=== PATIENT | male | born 1985 | race Caucasian/White ===

== ENCOUNTER 2020-05-27 20:16 | Inpatient (IN) | payer MEDICAID ==
[~2020-05-27] VITALS: Ht 182.9 cm; Wt 69.1 kg
[2020-05-27] MEDS ORDERED: IBUPROFEN 600 MG TABLET ONE (21:01)
[2020-05-27] MEDS ORDERED: HYDROcodone/APAP 5/325 TABLET ONE (21:02)
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
[2020-05-27] MEDS ORDERED: HYDROcodone/APAP 5/325 TABLET PO ONE (21:30)
[2020-05-27] MEDS ORDERED: IBUPROFEN 600 MG TABLET PO ONE (21:30)
--- NOTE | 2020-05-27 22:02 | NUR ---
REPORT FROM TIMOTHY LAMBERT. PT RESTING WITH NO NEEDS AT THIS TIME,CALL LIGHT IN REACH
[2020-05-27] MEDS ORDERED: SODIUM CHLORIDE FLUSH 10ML SYR IVF ONE (23:00)
[2020-05-27] MEDS ORDERED: AMPICILLIN/SULBACTAM 3 GM in SODIUM CHLORIDE 0.9% 100 ML IV ONE (23:00)
[2020-05-27] MEDS ORDERED: HYDROmorphone 2 MG/ML, 1ML IVPush PRN (23:00)
[2020-05-27] MEDS ORDERED: SODIUM CHLORIDE 0.9% 1,000ML IVBOLUS ONE (23:00)
[2020-05-27] MEDS ORDERED: ONDANSETRON 2MG/ML, 2ML IVPush ONE (23:00)
[2020-05-27] MEDS ORDERED: ONDANSETRON 2MG/ML, 2ML ONE (23:14)
[2020-05-27] MEDS ORDERED: HYDROmorphone 1 MG/ML, 1ML INJ ONE (23:14)
[2020-05-27 23:22] LABS: BASOPHILS # (AUTO) 0.05 x10^3/uL (0-0.1); BASOPHILS % (AUTO) 1 % (0-1); EOSINOPHILS % (AUTO) 1 % (1-7); LYMPHOCYTES # (AUTO) 1.62 x10^3/uL (1-3.4); LYMPHOCYTES % (AUTO) 20 % (22-44); MD NO; MEAN CORPUSCULAR HEMOGLOBIN 29.2 pg (27.5-34.5); MEAN CORPUSCULAR HGB CONC 33.2 g/dL (33.2-36.2); MEAN CORPUSCULAR VOLUME 87.9 fL (81-97); MEAN PLATELET VOLUME 7.4 fL (7.4-10.4); MONOCYTES # (AUTO) 0.67 x10^3/uL (0.2-0.8); MONOCYTES % (AUTO) 8 % (2-9); NEUTROPHILS # (AUTO) 5.65 x10^3/uL (1.8-6.8); NEUTROPHILS % (AUTO) 70 % (42-75); PLATELET COUNT 294 x10^3/uL (130-400); RED BLOOD COUNT 3.86 x10^6/uL (4.38-5.82); RED CELL DISTRIBUTION WIDTH 13.3 % (9.4-14.8)
[2020-05-27 23:32] LABS: ANION GAP 5 mmol/L (5-15); CHLORIDE 108 mmol/L (98-107); CREATININE 0.61 mg/dL (0.7-1.3)
--- NOTE | 2020-05-27 23:42 | NUR ---
PIV PLACED. PT MEDICATED FOR PAIN AND ABX RUNNING. REPORT GIVEN TO NOAH.
[2020-05-28] MEDS ORDERED: TEMAZEPAM 15 MG CAPSULE PO PRN
[2020-05-28] MEDS ORDERED: hydrALAzine 20 MG/ML, 1ML IVPush PRN
[2020-05-28] MEDS ORDERED: DOCUSATE 100 MG CAPSULE PO PRN
[2020-05-28] MEDS ORDERED: LIDODERM 5% PATCH TD PRN
[2020-05-28] MEDS: LACTATED RINGERS 1,000 ML IV SCH ×3 (00:13→14:23)
[2020-05-28 00:35] VITALS: BP 94/56
[2020-05-28] MEDS: HYDROmorphone 2 MG/ML, 1ML IVPush PRN ×8 (03:16→09:25)
[2020-05-28] MEDS: ONDANSETRON 2MG/ML, 2ML IVPush PRN ×2 (05:46→15:19)
[2020-05-28] MEDS ORDERED: SODIUM CHLORIDE 0.9%, 500ML IVBOLUS ONE (06:00)
[2020-05-28] MEDS: AMPICILLIN/SULBACTAM 3 GM in SODIUM CHLORIDE 0.9% 100 ML IV SCH ×2 (07:58→14:22)
[2020-05-28 08:02] VITALS: BP 108/71
[2020-05-28] MEDS ORDERED: CHLORHEXIDINE 15 ML UDC ONE (08:56)
[2020-05-28] MEDS ORDERED: CHLORHEXIDINE 15 ML UDC MM ONE (09:00)
[2020-05-28] MEDS ORDERED: LIDOCAINE 1%-EPI 1:100K, 20ML ONE (09:09)
[2020-05-28] MEDS ORDERED: LORazepam 2 MG/ML, 1ML ONE (10:16)
[2020-05-28] MEDS ORDERED: LORazepam 2 MG/ML, 1ML IVPush STA (10:16)
[2020-05-28 10:30] LABS: AMPHETAMINE SCREEN, URINE Positive (Negative); BARBITURATE SCREEN, URINE Negative (Negative); BENZODIAZEPINE SCREEN, URINE Negative (Negative); CANNABINOID SCREEN, URINE Negative (Negative); COCAINE SCREEN, URINE Negative (Negative); OPIATE SCREEN, URINE Positive (Negative)
[2020-05-28 10:31] LABS: METHADONE SCREEN, URINE Negative (Negative)
[2020-05-28] MEDS ORDERED: ROCURONIUM 10 MG/ML,10ML ONE (11:03)
[2020-05-28] MEDS ORDERED: ONDANSETRON 2MG/ML, 2ML ONE (11:03)
[2020-05-28] MEDS ORDERED: DEXAMETHASONE 4 MG/ML, 1ML ONE (11:03)
[2020-05-28] MEDS ORDERED: SUCCINYLCHOLINE 20 MG/ML, 10ML ONE (11:03)
[2020-05-28] MEDS ORDERED: MIDAZOLAM 1 MG/ML, 2ML ONE (11:04)
[2020-05-28] MEDS ORDERED: FENTANYL PF 250 MCG/5ML ONE ×2 (11:04→11:18)
[2020-05-28] MEDS ORDERED: PROPOFOL 10 MG/ML, 20ML ONE (11:17)
[2020-05-28] MEDS ORDERED: LABETALOL 5MG/ML, 20ML IV PRN (11:30)
[2020-05-28] MEDS ORDERED: DIPHENHYDRAMINE 50 MG/ML, 1ML IVPush PRN (11:30)
[2020-05-28] MEDS ORDERED: MIDAZOLAM 1 MG/ML, 2ML IV PRN (11:30)
[2020-05-28] MEDS ORDERED: FENTANYL PF 100 MCG/2ML IV PRN (11:30)
[2020-05-28] MEDS ORDERED: PROMETHAZINE 25 MG/ML, 1ML IVPush PRN (11:30)
[2020-05-28] MEDS ORDERED: MEPERIDINE/PF 25MG/0.5ML IVPush PRN (11:30)
[2020-05-28] MEDS ORDERED: ALBUTEROL SULFATE 2.5 MG/3 ML NPPB PRN (11:30)
[2020-05-28] MEDS ORDERED: ONDANSETRON 2MG/ML, 2ML IVPush PRN (11:30)
[2020-05-28] MEDS ORDERED: hydrALAzine 20 MG/ML, 1ML IV PRN (11:30)
[2020-05-28] MEDS ORDERED: EPHEDRINE 50 MG/ML, 1ML IVPush PRN (11:30)
[2020-05-28] MEDS ORDERED: PROMETHAZINE 12.5 MG SUPP PR PRN (11:30)
[2020-05-28] MEDS ORDERED: DIAZEPAM 5 MG/ML, 2ML IVPush PRN (11:30)
[2020-05-28] MEDS ORDERED: HYDROmorphone 1 MG/ML, 1ML INJ IVPush PRN (11:30)
[2020-05-28] MEDS ORDERED: ACETAMINOPHEN 325 MG TABLET PO PRN (11:30)
[2020-05-28] MEDS ORDERED: OXYcodone 5 MG/5 ML ORAL.SOL UDC PO PRN (11:30)
[2020-05-28 13:08] VITALS: BP 114/75
[2020-05-28] MEDS ORDERED: IBUP-1222 PO (14:42)
== END 2020-05-28 16:15 | disposition home or self-care (01) | DRG 131 ==
LOC: ED 20:46 → 4NE 23:48 → ED 23:49 → 4NE 05-28 00:28
PROVIDERS: ADMIT Student in an Organized Health Care Education/Training Program; ATTEND Family Medicine
PROC: 0NS Head and Facial Bones, Reposition (ICD-10-PCS; principal; 2020-05-28 10:00)
DX: S02.40FA Zygomatic fracture, left side, initial encounter for closed fracture (principal); S02.32XA Fracture of orbital floor, left side, initial encounter for closed fracture; S02.40DA Maxillary fracture, left side, initial encounter for closed fracture; F11.129 Opioid abuse with intoxication, unspecified; G89.11 Acute pain due to trauma; Z59.0 Homelessness; F15.10 Other stimulant abuse, uncomplicated; Z87.891 Personal history of nicotine dependence; Z20.828 Contact with and (suspected) exposure to other viral communicable diseases; Y08.89XA Assault by other specified means, initial encounter; Y93.89 Activity, other specified; Y92.89 Other specified places as the place of occurrence of the external cause; Y99.0 Civilian activity done for income or pay
CPT/HCPCS: 36415; 70486; 80048; 80074; 80307; 82040; 85025; 87635; 87806; G0378; J0295; J1100; J1170; J2250; J2405; J2704; J3010; J3490; G0475; J0330; J2060; J7030; J7040; J7120